=== PATIENT | female | born 1970 | race Caucasian/White ===

== ENCOUNTER 2020-12-16 06:13 | Day surgery (SDC) | payer OTHER ==
[2020-12-12 17:28] VITALS: BMI 24.1
[2020-12-16] MEDS ORDERED: LIDOCAINE 1%/EPI 1:100000 (20 ML MULTI DOSE VIAL) ONE (07:07)
[2020-12-16] MEDS ORDERED: MINERAL OIL 25 ML OIL ONE (07:27)
[2020-12-16] MEDS ORDERED: PROPOFOL 20 ML ONE ×2 (07:30)
[2020-12-16] MEDS ORDERED: MIDAZOLAM HCL 2 MG/2 ML SINGLE DOSE VIAL ONE (07:43)
[2020-12-16] MEDS ORDERED: KETOROLAC TROMETHAMINE 30 MG/1 ML VIAL ONE (07:43)
[2020-12-16] MEDS ORDERED: DEXAMETHASONE SOD PHOSPHATE 4 MG/1 ML VIAL ONE (07:43)
[2020-12-16] MEDS ORDERED: ONDANSETRON 4 MG/2 ML VIAL ONE (07:43)
[2020-12-16] MEDS ORDERED: BACITRACIN 15 GM TUBE TOPICAL OINTMENT ONE (08:08)
[2020-12-16] MEDS ORDERED: MINERAL OIL 25 ML OIL TP ONE (08:25)
[2020-12-16] MEDS ORDERED: PROMETHAZINE HCL 25 MG/1 ML VIAL IVPUSH PRN (08:48)
[2020-12-16] MEDS ORDERED: oxyCODONE HCL 5 MG TABLET PO PRN ×3 (08:48→08:57)
[2020-12-16] MEDS ORDERED: ONDANSETRON 4 MG/2 ML VIAL IVPUSH PRN (08:48)
[2020-12-16] MEDS ORDERED: ONDANSETRON 4 MG/2 ML VIAL IVPB PRN (08:57)
[2020-12-16] MEDS ORDERED: LACTATED RINGERS SOLUTION 1,000 ML IV SCH (09:00)
[2020-12-16 10:25] VITALS: BP 112/70; PULSE 70; TEMP 97.8
== END 2020-12-16 10:25 | disposition home or self-care (01) ==
LOC: FASU 06:13
PROVIDERS: ATTEND Plastic Surgery
PROC: 0JBL0ZZ Excision of Right Upper Leg Subcutaneous Tissue and Fascia, Open Approach (ICD-10-PCS; 2020-12-16)
PROC: 0HX5XZZ Transfer Chest Skin, External Approach (ICD-10-PCS; 2020-12-16)
PROC: 0HRT07Z Replacement of Right Breast with Autologous Tissue Substitute, Open Approach (ICD-10-PCS; principal; 2020-12-16 07:54)
DX: C50.911 Malignant neoplasm of unspecified site of right female breast (principal); S21.001A Unspecified open wound of right breast, initial encounter; X58.XXXA Exposure to other specified factors, initial encounter; Y93.9 Activity, unspecified; Y92.9 Unspecified place or not applicable
CPT/HCPCS: 94760